=== PATIENT | female | born 2000 | race Caucasian/White ===

== ENCOUNTER 2023-05-10 16:53 | Emergency (ER) | payer MEDICAID ==
[~2023-05-10] VITALS: Ht 152.4 cm; Wt 58.0 kg
[2023-05-10 17:00] VITALS: O2SAT 100
[2023-05-10 18:00] LABS: CLARITY URINE TURBID (CLEAR); COLOR URINE ORANGE (YELLOW); GLUCOSE URINE NEGATIVE (NEGATIVE); KETONES URINE TRACE (NEGATIVE); LEUKOCYTE ESTERASE URINE 2+ (NEGATIVE); NITRITE URINE NEGATIVE (NEGATIVE); OCCULT BLOOD URINE 3+ (NEGATIVE); PH URINE 5.5 (4.5-8.0); PROTEIN URINE 2+ (NEGATIVE); SPECIFIC GRAVITY URINE 1.023 (1.005-1.030)
[2023-05-10 18:49] LABS: BACTERIA URINE 2+; SQUAMOUS EPITHELIAL CELL URINE 3+ /lpf (RARE/1+)
[2023-05-10] MEDS ORDERED: CEPHALEXIN 250MG CAPSULE PO ONE ×2 (20:00→21:15)
[2023-05-10 20:25] LABS: BASOPHILS % 0.4 % (0.0-2.0); EOSINOPHILS % 1.4 % (0.0-5.0); HEMATOCRIT. 38.9 % (36.0-48.0); HEMOGLOBIN. 13.3 g/dL (12.0-16.0); LYMPHOCYTES % 17.2 % (20.0-50.0); MEAN CORPUSCULAR HGB CONC 34.3 g/dL (31.0-37.0); MEAN CORPUSCULAR VOLUME 87.5 fL (81.0-99.0); MEAN PLATELET VOLUME 7.4 fl (7.4-10.4); PLATELET 334 x1000/uL (130-400); RED BLOOD CELL COUNT 4.45 mill/uL (4.2-5.4); RED CELL DISTRIBUTION WIDTH 13.5 % (11.6-14.6); WHITE BLOOD COUNT 11.4 x1000/uL (4.5-11.0)
[2023-05-10 20:48] LABS: ALANINE AMINOTRANSFERASE 33 IU/L (10-49); ALBUMIN 4.2 g/dL (3.2-4.8); ASPARTATE AMINOTRANSFERASE 27 IU/L (<34); BILIRUBIN TOTAL 0.4 mg/dL (0.1-1.0); CALCIUM 9.6 mg/dL (8.7-10.4); CARBON DIOXIDE 22 mEq/L (21-32); CHLORIDE 105 mEq/L (98-107); CREATININE 0.5 mg/dL (0.6-1.0); GLUCOSE 90 mg/dL (70-105); PROTEIN TOTAL 7.6 g/dL (6.0-8.3); SODIUM 137 mEq/L (136-145); UREA NITROGEN BLOOD 6 mg/dL (9-23)
[2023-05-10 20:51] LABS: B-HCG QUANTITATIVE > 200000 mIU/mL (<3)
[2023-05-10] MEDS ORDERED: PYRIDOXINE HCL 50MG TABLET PO ONE (21:15)
[2023-05-10] MEDS ORDERED: PYRI50CA MT (22:28)
[2023-05-10] MEDS ORDERED: CEPH500C2 MT (22:28)
[2023-05-10 23:15] VITALS: BP 129/74; PULSE 66; RESP 20; TEMP 98.4
== END 2023-05-10 23:30 | disposition home or self-care (01) ==
LOC: ER 16:53
DX: O46.92 Antepartum hemorrhage, unspecified, second trimester (principal); F19.90 Other psychoactive substance use, unspecified, uncomplicated; Z3A.22 22 weeks gestation of pregnancy
CPT/HCPCS: 36415; 76801; 80053; 81003; 81025; 84702; 85025; 86850; 86900; 99284